=== PATIENT | female | born 1985 | race Two or more races ===

== ENCOUNTER → 2025-02-05 | Outpatient (REF) | payer MEDICAID ==
[2025-02-05 13:30] LABS: Trichomonas vaginalis (AMP) NOT DETECTED (NEGATIVE)
[2025-02-05 13:54] LABS: GC DNA AMPLIFICATION NEGATIVE (NEGATIVE)
[2025-02-05 15:10] LABS: ALT/SGPT 14 U/L (7.0-40); AST/SGOT 16 U/L (<34); CALCIUM LEVEL 8.9 MG/DL (8.5-10.1); CARBON DIOXIDE LEVEL 29 MMOL/L (20-31); CHLORIDE LEVEL 102 MMOL/L (98-107); CHOLESTEROL LEVEL 187 MG/DL (<200); CHOLESTEROL RISK RATIO 4.23 (<5); CREATININE FOR GFR 0.65 MG/DL (0.55-1.30); ESTIMATED AVERAGE GLUCOSE 105.0 MG/DL (60-110); GLOMERULAR FILTRATION RATE > 90.0 (>58); LDL CHOLESTEROL 72.8 MG/DL (<100); NON-HDL-C 142.8 MG/DL; POTASSIUM SERUM 4.4 MMOL/L (3.5-5.1); SODIUM LEVEL 136 MMOL/L (136-145); TOTAL 25(OH) VITAMIN D 15.6 NG/ML (20.0-100.0); TRIGLYCERIDES LEVEL 350 MG/DL (<150)
[2025-02-05 15:41] LABS: HIV 1&2 SCREEN NEGATIVE (NEGATIVE)
[2025-02-05 15:52] LABS: HEPATITIS C VIRUS ABY INDEX > 11.00 INDEX (<0.8)
[2025-02-07 09:32] LABS: HCV RNA QUANTITATION <15 NOT DETECTED IU/mL (NOT DETECTED); HCV RNA log10 <1.18 NOT DETECTED Log IU/mL (NOT DETECTED)
== END ==
LOC: M LAB REF 11:51
PROVIDERS: ATTEND Physician Assistant
DX: Z11.9 Encounter for screening for infectious and parasitic diseases, unspecified (principal); E66.9 Obesity, unspecified; E55.9 Vitamin D deficiency, unspecified